=== PATIENT | female | born 1935 | race Two or more races ===

== ENCOUNTER → 2017-11-01 | Outpatient (CLI) | payer OTHER ==
[~2017-11-01] VITALS: Ht 152.4 cm; Wt 81.6 kg
[~2017-11-01] MED LIST: CENTRUM SILVER1 TAB PO; CRESTOR10 MG PO; DIOVAN160 M1 PO; LOPRESSOR25 MG PO; MILK THISTLE200 MG PO; NEURIN; PLAVIX75 MG PO; SKELAXIN; TIZANIDINE HCL2 MG PO; VITAMIN B-1000 MCG/2 IJ; ZANTAC300 MG PO; [UNRECOGNIZED DRUG - OTHER]
== END | disposition home or self-care (01) ==
LOC: PPHC 11:38
DX: R05 Cough (principal); J06.9 Acute upper respiratory infection, unspecified

== ENCOUNTER 2018-01-13 10:26 | Outpatient (CLI) | payer OTHER ==
[~2018-01-13 10:26] MED LIST changes: +DERMOTIC20 ML OTIC; +ZYRTEC10 MG PO
== END 2018-01-14 10:26 | disposition home or self-care (01) ==
LOC: LAB 10:26
DX: I10 Essential (primary) hypertension (principal); E78.4 Other hyperlipidemia; E03.4 Atrophy of thyroid (acquired); C18.2 Malignant neoplasm of ascending colon; E72.12 Methylenetetrahydrofolate reductase deficiency; D68.61 Antiphospholipid syndrome; E72.11 Homocystinuria; D68.59 Other primary thrombophilia; M15.0 Primary generalized (osteo)arthritis; I80.293 Phlebitis and thrombophlebitis of other deep vessels of lower extremity, bilateral; N39.0 Urinary tract infection, site not specified; Z86.010 Personal history of colon polyps; Z85.09 Personal history of malignant neoplasm of other digestive organs; Z85.038 Personal history of other malignant neoplasm of large intestine; Z86.718 Personal history of other venous thrombosis and embolism; Z86.72 Personal history of thrombophlebitis; D50.8 Other iron deficiency anemias; D51.8 Other vitamin B12 deficiency anemias; E55.9 Vitamin D deficiency, unspecified; K90.89 Other intestinal malabsorption; E03.8 Other specified hypothyroidism; R97.0 Elevated carcinoembryonic antigen [CEA]; E78.2 Mixed hyperlipidemia; R73.09 Other abnormal glucose

== ENCOUNTER 2018-01-13 11:26 | Outpatient (CLI) | payer OTHER | END 2018-01-13 15:40 | disposition home or self-care (01) | LOC: MAMO-SONO 11:26 | DX: Z12.31 Encounter for screening mammogram for malignant neoplasm of breast (principal); Z87.898 Personal history of other specified conditions; N64.89 Other specified disorders of breast ==

== ENCOUNTER 2018-01-13 11:39 | Outpatient (CLI) | payer OTHER | END 2018-01-13 15:29 | disposition home or self-care (01) | LOC: RAD 11:39 | DX: R05 Cough (principal); J45.41 Moderate persistent asthma with (acute) exacerbation ==

== ENCOUNTER → 2018-05-05 10:19 | Outpatient (CLI) | payer OTHER | END | disposition home or self-care (01) | LOC: LAB 10:19 | DX: I10 Essential (primary) hypertension (principal); E78.4 Other hyperlipidemia; E03.4 Atrophy of thyroid (acquired) ==

== ENCOUNTER → 2018-05-10 09:17 | Outpatient (CLI) | payer OTHER | END | disposition home or self-care (01) | LOC: LAB 09:17 | DX: C18.2 Malignant neoplasm of ascending colon (principal); D68.61 Antiphospholipid syndrome; M15.0 Primary generalized (osteo)arthritis; I80.293 Phlebitis and thrombophlebitis of other deep vessels of lower extremity, bilateral; N39.0 Urinary tract infection, site not specified; Z86.010 Personal history of colon polyps; Z85.09 Personal history of malignant neoplasm of other digestive organs; Z85.038 Personal history of other malignant neoplasm of large intestine; Z86.718 Personal history of other venous thrombosis and embolism; Z86.72 Personal history of thrombophlebitis; I10 Essential (primary) hypertension; E03.8 Other specified hypothyroidism; D50.1 Sideropenic dysphagia; D50.8 Other iron deficiency anemias; E78.2 Mixed hyperlipidemia; E04.1 Nontoxic single thyroid nodule; E11.9 Type 2 diabetes mellitus without complications ==

== ENCOUNTER 2018-05-14 10:03 | Outpatient (CLI) | payer OTHER | END 2018-05-14 10:15 | disposition home or self-care (01) | LOC: MRI 10:03 | DX: M72.2 Plantar fascial fibromatosis (principal); M17.11 Unilateral primary osteoarthritis, right knee | CPT/HCPCS: 73718; 73721 ==

== ENCOUNTER 2018-06-04 07:00 | Outpatient (CLI) | payer OTHER | END 2018-06-04 10:00 | disposition home or self-care (01) | LOC: TOM 07:00 | DX: C18.2 Malignant neoplasm of ascending colon (principal); E72.12 Methylenetetrahydrofolate reductase deficiency; D68.61 Antiphospholipid syndrome; E72.11 Homocystinuria; D68.59 Other primary thrombophilia; M15.0 Primary generalized (osteo)arthritis; I80.293 Phlebitis and thrombophlebitis of other deep vessels of lower extremity, bilateral; N39.0 Urinary tract infection, site not specified; Z86.010 Personal history of colon polyps; Z85.09 Personal history of malignant neoplasm of other digestive organs; Z86.718 Personal history of other venous thrombosis and embolism; Z86.72 Personal history of thrombophlebitis; I10 Essential (primary) hypertension | CPT/HCPCS: 71260; 74177; Q9965 ==

== ENCOUNTER → 2018-06-13 | Outpatient (CLI) | payer OTHER | END | disposition home or self-care (01) | LOC: MRI 05-14 10:15 → RAD 11:51 | DX: M25.512 Pain in left shoulder (principal); M19.012 Primary osteoarthritis, left shoulder ==

== ENCOUNTER 2018-09-20 09:09 | Outpatient (CLI) | payer OTHER ==
[2018-09-29] MEDS ORDERED: LIDOCAINE5 GM TOP (10:56)
== END 2018-09-20 09:14 | disposition home or self-care (01) ==
LOC: LAB 09:09
DX: I10 Essential (primary) hypertension (principal); E03.4 Atrophy of thyroid (acquired); E78.49 Other hyperlipidemia; M19.011 Primary osteoarthritis, right shoulder

== ENCOUNTER 2018-10-14 14:25 | Outpatient (CLI) | payer OTHER ==
[~2018-10-14 14:25] MED LIST changes: +LIDOCAINE5 GM TOP
== END 2018-10-14 14:33 | disposition home or self-care (01) ==
LOC: SONOGRAMA 14:25
DX: M75.102 Unspecified rotator cuff tear or rupture of left shoulder, not specified as traumatic (principal); M75.101 Unspecified rotator cuff tear or rupture of right shoulder, not specified as traumatic; N28.1 Cyst of kidney, acquired

== ENCOUNTER 2018-11-22 09:34 | Outpatient (CLI) | payer OTHER | END 2018-11-22 09:39 | disposition home or self-care (01) | LOC: LAB 09:34 | DX: I10 Essential (primary) hypertension (principal); E71.40 Disorder of carnitine metabolism, unspecified; E03.4 Atrophy of thyroid (acquired) ==

== ENCOUNTER → 2018-11-28 | Outpatient (CLI) | payer OTHER | END | disposition home or self-care (01) | LOC: NUCLEAR 13:00 | DX: M81.0 Age-related osteoporosis without current pathological fracture (principal) ==

== ENCOUNTER 2018-12-02 12:04 | Outpatient (CLI) | payer OTHER | END 2018-12-02 12:09 | disposition home or self-care (01) | LOC: LAB 12:04 | DX: Z12.11 Encounter for screening for malignant neoplasm of colon (principal) ==

== ENCOUNTER 2018-12-03 11:36 | Outpatient (CLI) | payer OTHER | END 2018-12-03 12:19 | disposition home or self-care (01) | LOC: RAD 11:36 | DX: M46.1 Sacroiliitis, not elsewhere classified (principal); M25.552 Pain in left hip; M25.551 Pain in right hip ==

== ENCOUNTER 2018-12-03 14:36 | Outpatient (CLI) | payer OTHER | END 2018-12-03 15:01 | disposition home or self-care (01) | LOC: LAB 14:36 | DX: M46.1 Sacroiliitis, not elsewhere classified (principal); M25.551 Pain in right hip; M25.552 Pain in left hip; M19.90 Unspecified osteoarthritis, unspecified site; Z74.09 Other reduced mobility; M75.80 Other shoulder lesions, unspecified shoulder ==

== ENCOUNTER 2018-12-22 10:25 | Outpatient (CLI) | payer OTHER | END 2018-12-22 10:30 | disposition home or self-care (01) | LOC: LAB 10:25 | DX: E78.49 Other hyperlipidemia (principal); M35.3 Polymyalgia rheumatica ==

== ENCOUNTER → 2019-01-14 | Outpatient (CLI) | payer OTHER | END | disposition home or self-care (01) | LOC: RAD 11:42 | DX: D36.13 Benign neoplasm of peripheral nerves and autonomic nervous system of lower limb, including hip (principal); G57.62 Lesion of plantar nerve, left lower limb ==

== ENCOUNTER 2019-01-31 09:37 | Outpatient (CLI) | payer OTHER | END 2019-01-31 09:46 | disposition home or self-care (01) | LOC: LAB 09:37 | DX: E78.49 Other hyperlipidemia (principal); M35.3 Polymyalgia rheumatica; E11.9 Type 2 diabetes mellitus without complications ==

== ENCOUNTER → 2019-02-28 09:41 | Outpatient (CLI) | payer OTHER | END | disposition home or self-care (01) | LOC: LAB 09:41 | DX: N18.2 Chronic kidney disease, stage 2 (mild) (principal); I10 Essential (primary) hypertension; N39.0 Urinary tract infection, site not specified ==

== ENCOUNTER 2019-03-03 13:13 | Outpatient (CLI) | payer OTHER | END 2019-03-03 13:15 | disposition home or self-care (01) | LOC: SONOGRAMA 13:13 | DX: N31.8 Other neuromuscular dysfunction of bladder (principal); N18.2 Chronic kidney disease, stage 2 (mild) ==

== ENCOUNTER 2019-03-10 09:44 | Outpatient (CLI) | payer OTHER | END 2019-03-10 09:51 | disposition home or self-care (01) | LOC: LAB 09:44 | DX: C18.2 Malignant neoplasm of ascending colon (principal); E72.12 Methylenetetrahydrofolate reductase deficiency; E72.11 Homocystinuria; D68.59 Other primary thrombophilia; M15.0 Primary generalized (osteo)arthritis; I80.293 Phlebitis and thrombophlebitis of other deep vessels of lower extremity, bilateral; N39.0 Urinary tract infection, site not specified; Z86.010 Personal history of colon polyps; Z85.09 Personal history of malignant neoplasm of other digestive organs; Z85.038 Personal history of other malignant neoplasm of large intestine; Z86.718 Personal history of other venous thrombosis and embolism; Z86.72 Personal history of thrombophlebitis; I10 Essential (primary) hypertension; D50.8 Other iron deficiency anemias; D51.8 Other vitamin B12 deficiency anemias; R97.0 Elevated carcinoembryonic antigen [CEA]; K90.89 Other intestinal malabsorption ==

== ENCOUNTER → 2019-03-11 | Outpatient (CLI) | payer OTHER | END | disposition home or self-care (01) | LOC: MAMO-SONO 11:15 → RAD 11:33 | DX: M35.3 Polymyalgia rheumatica (principal); M15.8 Other polyosteoarthritis ==

== ENCOUNTER 2019-05-05 09:55 | Outpatient (CLI) | payer OTHER | END 2019-05-05 09:59 | disposition home or self-care (01) | LOC: LAB 09:55 | DX: M35.3 Polymyalgia rheumatica (principal) ==

== ENCOUNTER 2019-06-25 14:33 | Emergency (ER) | payer OTHER ==
[~2019-06-25] VITALS: Ht 162.6 cm; Wt 79.4 kg
[2019-06-25] MEDS ORDERED: AVAPRO150 MG PO (15:00)
== END 2019-06-25 18:42 | disposition home or self-care (01) ==
LOC: ER 14:33
DX: G45.8 Other transient cerebral ischemic attacks and related syndromes (principal)

== ENCOUNTER 2019-07-11 09:31 | Outpatient (CLI) | payer OTHER ==
[~2019-07-11 09:31] MED LIST changes: +AVAPRO150 MG PO
== END 2019-07-11 09:40 | disposition home or self-care (01) ==
LOC: LAB 09:31
DX: M53.82 Other specified dorsopathies, cervical region (principal); E11.9 Type 2 diabetes mellitus without complications; E03.8 Other specified hypothyroidism; M35.3 Polymyalgia rheumatica

== ENCOUNTER 2019-07-27 09:08 | Outpatient (CLI) | payer OTHER | END 2019-07-27 09:35 | disposition home or self-care (01) | LOC: LAB 09:08 | DX: E04.1 Nontoxic single thyroid nodule (principal) ==

== ENCOUNTER 2019-07-27 14:05 | Outpatient (CLI) | payer OTHER | END 2019-07-27 14:09 | disposition home or self-care (01) | LOC: SONOGRAMA 14:05 → MAMO-SONO 14:15 | DX: E04.1 Nontoxic single thyroid nodule (principal) ==

== ENCOUNTER 2019-08-10 09:36 | Outpatient (CLI) | payer OTHER | END 2019-08-10 09:43 | disposition home or self-care (01) | LOC: SONOGRAMA 09:36 | DX: E04.2 Nontoxic multinodular goiter (principal) ==

== ENCOUNTER → 2019-09-09 18:08 | Outpatient (CLI) | payer OTHER | END | disposition home or self-care (01) | LOC: LAB 18:08 | DX: N39.0 Urinary tract infection, site not specified (principal) ==

== ENCOUNTER 2019-11-16 09:29 | Outpatient (CLI) | payer OTHER | END 2019-11-16 09:36 | disposition home or self-care (01) | LOC: LAB 09:29 | DX: D64.89 Other specified anemias (principal); E11.9 Type 2 diabetes mellitus without complications; E03.8 Other specified hypothyroidism; N39.0 Urinary tract infection, site not specified; Z12.11 Encounter for screening for malignant neoplasm of colon; M79.18 Myalgia, other site; D50.8 Other iron deficiency anemias; I10 Essential (primary) hypertension; C18.2 Malignant neoplasm of ascending colon; E72.12 Methylenetetrahydrofolate reductase deficiency; E72.11 Homocystinuria; D68.59 Other primary thrombophilia; M15.0 Primary generalized (osteo)arthritis; I80.293 Phlebitis and thrombophlebitis of other deep vessels of lower extremity, bilateral; Z86.010 Personal history of colon polyps; Z85.09 Personal history of malignant neoplasm of other digestive organs; Z85.038 Personal history of other malignant neoplasm of large intestine; Z86.718 Personal history of other venous thrombosis and embolism; Z86.72 Personal history of thrombophlebitis; D51.8 Other vitamin B12 deficiency anemias; R97.0 Elevated carcinoembryonic antigen [CEA]; E55.9 Vitamin D deficiency, unspecified; E78.49 Other hyperlipidemia ==

== ENCOUNTER → 2019-11-19 | Outpatient (CLI) | payer OTHER | END | disposition home or self-care (01) | LOC: RAD 09:08 → TOM 09:15 | DX: K57.30 Diverticulosis of large intestine without perforation or abscess without bleeding (principal); Z85.038 Personal history of other malignant neoplasm of large intestine; K43.0 Incisional hernia with obstruction, without gangrene; M54.12 Radiculopathy, cervical region | CPT/HCPCS: 72141 ==

== ENCOUNTER 2019-12-25 09:30 | Outpatient (CLI) | payer OTHER | END 2019-12-25 09:38 | disposition home or self-care (01) | LOC: LAB 09:30 | DX: H53.8 Other visual disturbances (principal) ==

== ENCOUNTER 2020-06-17 13:40 | Outpatient (CLI) | payer OTHER ==
[2020-06-24] MEDS ORDERED: TRAMADOL HCL50 MG PO (10:54)
== END 2020-06-17 14:02 | disposition home or self-care (01) ==
LOC: RAD 13:40 → MAMO-SONO 14:15
PROVIDERS: ATTEND Internal Medicine
DX: N60.11 Diffuse cystic mastopathy of right breast (principal); N60.12 Diffuse cystic mastopathy of left breast; M25.551 Pain in right hip; M25.552 Pain in left hip; Z12.31 Encounter for screening mammogram for malignant neoplasm of breast

== ENCOUNTER 2020-06-27 14:08 | Outpatient (CLI) | payer OTHER ==
[~2020-06-27 14:08] MED LIST changes: +TRAMADOL HCL50 MG PO
== END 2020-06-27 14:19 | disposition home or self-care (01) ==
LOC: MRI 14:08
PROVIDERS: ATTEND Physical Medicine & Rehabilitation
DX: M25.552 Pain in left hip (principal)
CPT/HCPCS: 73718; 73721

== ENCOUNTER 2020-07-20 10:20 | Outpatient (CLI) | payer OTHER | END 2020-07-20 10:34 | disposition home or self-care (01) | LOC: LAB 10:20 | PROVIDERS: ATTEND Internal Medicine | DX: D64.89 Other specified anemias (principal); E78.2 Mixed hyperlipidemia; E55.9 Vitamin D deficiency, unspecified; N39.0 Urinary tract infection, site not specified; Z12.11 Encounter for screening for malignant neoplasm of colon ==

== ENCOUNTER 2020-08-12 16:09 | Outpatient (CLI) | payer OTHER | END 2020-08-12 16:13 | disposition home or self-care (01) | LOC: LAB 16:09 | DX: N39.0 Urinary tract infection, site not specified (principal) ==

== ENCOUNTER → 2020-12-27 10:43 | Outpatient (CLI) | payer OTHER | END | disposition home or self-care (01) | LOC: LAB 10:43 | PROVIDERS: ATTEND Radiology Diagnostic Radiology | DX: N20.0 Calculus of kidney (principal) ==

== ENCOUNTER 2021-01-02 09:12 | Outpatient (CLI) | payer OTHER | END 2021-01-02 09:36 | disposition home or self-care (01) | LOC: TOM 09:12 | PROVIDERS: ATTEND Internal Medicine Hematology & Oncology | DX: Q61.02 Congenital multiple renal cysts (principal); E04.8 Other specified nontoxic goiter; C18.2 Malignant neoplasm of ascending colon; E72.12 Methylenetetrahydrofolate reductase deficiency; E72.11 Homocystinuria; D68.59 Other primary thrombophilia; M15.0 Primary generalized (osteo)arthritis; I80.293 Phlebitis and thrombophlebitis of other deep vessels of lower extremity, bilateral; N39.0 Urinary tract infection, site not specified; Z86.010 Personal history of colon polyps; Z85.09 Personal history of malignant neoplasm of other digestive organs; Z85.038 Personal history of other malignant neoplasm of large intestine; Z86.718 Personal history of other venous thrombosis and embolism; Z86.72 Personal history of thrombophlebitis; I10 Essential (primary) hypertension | CPT/HCPCS: 71270; Q9965 ==

== ENCOUNTER 2021-04-28 11:48 | Outpatient (CLI) | payer OTHER | END 2021-04-28 12:03 | disposition home or self-care (01) | LOC: MRI 11:48 | PROVIDERS: ATTEND Psychiatry & Neurology Clinical Neurophysiology | DX: M54.16 Radiculopathy, lumbar region (principal) | CPT/HCPCS: 72148 ==

== ENCOUNTER 2021-09-12 10:39 | Outpatient (CLI) | payer OTHER | END 2021-09-12 10:46 | disposition home or self-care (01) | LOC: RAD 10:39 | PROVIDERS: ATTEND Internal Medicine | DX: M13.812 Other specified arthritis, left shoulder (principal); M25.512 Pain in left shoulder; N60.11 Diffuse cystic mastopathy of right breast; N60.12 Diffuse cystic mastopathy of left breast; Z12.31 Encounter for screening mammogram for malignant neoplasm of breast; M25.511 Pain in right shoulder ==

== ENCOUNTER 2021-11-27 11:16 | Outpatient (CLI) | payer OTHER | END 2021-11-27 11:24 | disposition home or self-care (01) | LOC: LAB 11:16 | PROVIDERS: ATTEND Internal Medicine Hematology & Oncology | DX: D64.89 Other specified anemias (principal); B96.29 Other Escherichia coli [E. coli] as the cause of diseases classified elsewhere; E78.2 Mixed hyperlipidemia; I10 Essential (primary) hypertension; E03.8 Other specified hypothyroidism; N39.0 Urinary tract infection, site not specified; E55.9 Vitamin D deficiency, unspecified; R73.09 Other abnormal glucose; Z12.11 Encounter for screening for malignant neoplasm of colon; D50.8 Other iron deficiency anemias; R79.89 Other specified abnormal findings of blood chemistry; R74.02 Elevation of levels of lactic acid dehydrogenase [LDH]; K76.89 Other specified diseases of liver; D68.61 Antiphospholipid syndrome; R97.0 Elevated carcinoembryonic antigen [CEA]; R97.8 Other abnormal tumor markers; R19.5 Other fecal abnormalities; C18.2 Malignant neoplasm of ascending colon; I26.99 Other pulmonary embolism without acute cor pulmonale; M15.0 Primary generalized (osteo)arthritis; I80.293 Phlebitis and thrombophlebitis of other deep vessels of lower extremity, bilateral; Z86.010 Personal history of colon polyps; Z85.09 Personal history of malignant neoplasm of other digestive organs; Z85.038 Personal history of other malignant neoplasm of large intestine; Z86.718 Personal history of other venous thrombosis and embolism; Z86.72 Personal history of thrombophlebitis ==

== ENCOUNTER 2021-11-30 16:00 | Outpatient (CLI) | payer OTHER | END 2021-11-30 16:07 | disposition home or self-care (01) | LOC: LAB 16:00 | PROVIDERS: ATTEND Internal Medicine Hematology & Oncology | DX: D64.89 Other specified anemias (principal); E78.2 Mixed hyperlipidemia; I10 Essential (primary) hypertension; E03.8 Other specified hypothyroidism; N39.0 Urinary tract infection, site not specified; E55.9 Vitamin D deficiency, unspecified; R73.09 Other abnormal glucose; Z12.11 Encounter for screening for malignant neoplasm of colon; D50.8 Other iron deficiency anemias; R79.89 Other specified abnormal findings of blood chemistry; R74.02 Elevation of levels of lactic acid dehydrogenase [LDH]; K76.89 Other specified diseases of liver; D68.61 Antiphospholipid syndrome; R97.0 Elevated carcinoembryonic antigen [CEA]; R97.8 Other abnormal tumor markers; C10.2 Malignant neoplasm of lateral wall of oropharynx; I26.99 Other pulmonary embolism without acute cor pulmonale; M15.0 Primary generalized (osteo)arthritis; I80.293 Phlebitis and thrombophlebitis of other deep vessels of lower extremity, bilateral; Z86.010 Personal history of colon polyps; Z85.09 Personal history of malignant neoplasm of other digestive organs; Z85.038 Personal history of other malignant neoplasm of large intestine; Z86.718 Personal history of other venous thrombosis and embolism; Z86.72 Personal history of thrombophlebitis ==

== ENCOUNTER 2022-01-06 13:38 | Outpatient (CLI) | payer OTHER | END 2022-01-06 13:44 | disposition home or self-care (01) | LOC: LAB 13:38 | PROVIDERS: ATTEND Internal Medicine | DX: N39.0 Urinary tract infection, site not specified (principal) ==

== ENCOUNTER 2022-02-28 23:33 | Emergency (ER) | payer OTHER ==
[~2022-02-28] VITALS: Ht 160 cm; Wt 85.7 kg
[2022-03-01] MEDS ORDERED: ULTRAM50 MG PO (03:24)
[2022-03-12] MEDS ORDERED: MILLIPRED5 MG PO (15:13)
[2022-03-12] MEDS ORDERED: XARELTO20 M1 PO (15:13)
== END 2022-03-01 04:03 ==
LOC: ER 23:33
DX: M25.512 Pain in left shoulder (principal)

== ENCOUNTER 2022-03-03 13:03 | Emergency (ER) | payer OTHER ==
[~2022-03-03] VITALS: Ht 160 cm; Wt 85.7 kg
[~2022-03-03 13:03] MED LIST changes: +ULTRAM50 MG PO
[2022-03-12] MEDS ORDERED: XARELTO20 M1 PO (15:13)
[2022-03-12] MEDS ORDERED: MILLIPRED5 MG PO (15:13)
== END 2022-03-03 19:19 | disposition home or self-care (01) ==
LOC: ER 13:03
DX: S42.332A Displaced oblique fracture of shaft of humerus, left arm, initial encounter for closed fracture (principal); S00.83XA Contusion of other part of head, initial encounter; W01.0XXA Fall on same level from slipping, tripping and stumbling without subsequent striking against object, initial encounter; Y92.018 Other place in single-family (private) house as the place of occurrence of the external cause; Z88.6 Allergy status to analgesic agent; Z79.02 Long term (current) use of antithrombotics/antiplatelets; I10 Essential (primary) hypertension

== ENCOUNTER 2022-03-06 12:54 | Outpatient (CLI) | payer OTHER ==
[~2022-03-06] VITALS: Ht 160 cm; Wt 83.0 kg
[2022-03-12] MEDS ORDERED: XARELTO20 M1 PO (15:13)
[2022-03-12] MEDS ORDERED: MILLIPRED5 MG PO (15:13)
== END 2022-03-06 16:27 | disposition home or self-care (01) ==
LOC: LAB 12:54
PROVIDERS: ATTEND Orthopaedic Surgery
DX: D64.9 Anemia, unspecified (principal); E88.9 Metabolic disorder, unspecified; D68.8 Other specified coagulation defects; N39.0 Urinary tract infection, site not specified; A49.02 Methicillin resistant Staphylococcus aureus infection, unspecified site; E11.9 Type 2 diabetes mellitus without complications; I10 Essential (primary) hypertension; I49.9 Cardiac arrhythmia, unspecified; Z76.89 Persons encountering health services in other specified circumstances

== ENCOUNTER 2022-03-08 14:23 | Outpatient (CLI) | payer OTHER ==
[2022-03-12] MEDS ORDERED: MILLIPRED5 MG PO (15:13)
[2022-03-12] MEDS ORDERED: XARELTO20 M1 PO (15:13)
== END 2022-03-08 14:54 | disposition home or self-care (01) ==
LOC: RAD 14:23
PROVIDERS: ATTEND Orthopaedic Surgery
DX: M54.6 Pain in thoracic spine (principal); M54.50 Low back pain, unspecified

== ENCOUNTER 2022-03-13 13:27 | Day surgery (SDC) | payer OTHER ==
[~2022-03-13 13:27] MED LIST changes: +MILLIPRED5 MG PO; +XARELTO20 M1 PO
[2022-03-14] MEDS ORDERED: IRBESARTAN-HCT1 EACH (08:47)
[2022-03-14] MEDS ORDERED: METOPROLOL SUCC25 MG (08:47)
[2022-03-14] MEDS ORDERED: PANTOPRAZOLE SO40 MG (08:47)
[2022-03-14] MEDS ORDERED: ATORVASTATIN CA10 MG (08:48)
[2022-03-14] MEDS ORDERED: RAYOS5 MG (08:48)
== END 2022-03-14 14:25 | disposition home or self-care (01) ==
LOC: CIR.AMB 13:27 → O/R 20:35 → CIR.AMB 20:35 → O/R 03-14 10:30
PROVIDERS: ATTEND Orthopaedic Surgery
DX: S42.392A Other fracture of shaft of left humerus, initial encounter for closed fracture (principal); Z20.822 Contact with and (suspected) exposure to COVID-19; Z88.6 Allergy status to analgesic agent; I10 Essential (primary) hypertension; Z86.711 Personal history of pulmonary embolism; Z79.01 Long term (current) use of anticoagulants

== ENCOUNTER 2022-04-12 10:31 | Outpatient (CLI) | payer OTHER ==
[~2022-04-12 10:31] MED LIST changes: +ATORVASTATIN CA10 MG; +IRBESARTAN-HCT1 EACH; +METOPROLOL SUCC25 MG; +PANTOPRAZOLE SO40 MG; +RAYOS5 MG
== END 2022-04-12 10:37 | disposition home or self-care (01) ==
LOC: RAD 10:31
PROVIDERS: ATTEND Orthopaedic Surgery
DX: S42.332D Displaced oblique fracture of shaft of humerus, left arm, subsequent encounter for fracture with routine healing (principal)

== ENCOUNTER 2022-08-09 11:29 | Outpatient (CLI) | payer OTHER | END 2022-08-09 11:30 | disposition home or self-care (01) | LOC: NUCLEAR 11:29 | PROVIDERS: ATTEND Orthopaedic Surgery | DX: M81.0 Age-related osteoporosis without current pathological fracture (principal); Z88.6 Allergy status to analgesic agent ==

== ENCOUNTER 2022-08-28 12:15 | Outpatient (CLI) | payer OTHER | END 2022-08-28 12:19 | disposition home or self-care (01) | LOC: SONOGRAMA 12:15 | PROVIDERS: ATTEND Internal Medicine | DX: J44.1 Chronic obstructive pulmonary disease with (acute) exacerbation (principal); N18.2 Chronic kidney disease, stage 2 (mild); I87.2 Venous insufficiency (chronic) (peripheral) ==

== ENCOUNTER 2022-12-21 15:22 | Outpatient (CLI) | payer OTHER | END 2022-12-21 15:31 | disposition home or self-care (01) | LOC: RAD 15:22 | PROVIDERS: ATTEND Internal Medicine | DX: J01.90 Acute sinusitis, unspecified (principal) ==

== ENCOUNTER 2023-01-16 14:58 | Outpatient (CLI) | payer OTHER | END 2023-01-16 15:00 | disposition home or self-care (01) | LOC: LAB 14:58 | PROVIDERS: ATTEND Physical Medicine & Rehabilitation | DX: M10.9 Gout, unspecified (principal) ==

== ENCOUNTER 2023-02-16 10:30 | Outpatient (CLI) | payer OTHER | END 2023-02-16 10:34 | disposition home or self-care (01) | LOC: LAB 10:30 | PROVIDERS: ATTEND Specialist | DX: I10 Essential (primary) hypertension (principal); E78.5 Hyperlipidemia, unspecified; E03.5 Myxedema coma ==

== ENCOUNTER 2023-03-04 14:42 | Outpatient (CLI) | payer OTHER | END 2023-03-04 14:47 | disposition home or self-care (01) | LOC: LAB 14:42 | PROVIDERS: ATTEND Orthopaedic Surgery | DX: M85.9 Disorder of bone density and structure, unspecified (principal); E56.1 Deficiency of vitamin K; E83.42 Hypomagnesemia; R79.89 Other specified abnormal findings of blood chemistry ==

== ENCOUNTER 2023-03-22 11:32 | Outpatient (CLI) | payer OTHER | END 2023-03-22 11:36 | disposition home or self-care (01) | LOC: MRI 11:32 | PROVIDERS: ATTEND Orthopaedic Surgery | DX: M25.511 Pain in right shoulder (principal) | CPT/HCPCS: 73223; Q9965; 73722 ==

== ENCOUNTER → 2023-04-02 16:38 | Outpatient (CLI) | payer OTHER | END | disposition home or self-care (01) | LOC: LAB 16:38 | PROVIDERS: ATTEND Physical Medicine & Rehabilitation | DX: M35.3 Polymyalgia rheumatica (principal) ==

== ENCOUNTER 2023-04-10 14:16 | Outpatient (CLI) | payer OTHER | END 2023-04-10 14:22 | disposition home or self-care (01) | LOC: LAB 14:16 | PROVIDERS: ATTEND Colon & Rectal Surgery | DX: Z03.818 Encounter for observation for suspected exposure to other biological agents ruled out (principal); Z20.822 Contact with and (suspected) exposure to COVID-19; C18.2 Malignant neoplasm of ascending colon; Z85.038 Personal history of other malignant neoplasm of large intestine ==

== ENCOUNTER 2023-04-18 13:35 | Outpatient (CLI) | payer OTHER | END 2023-04-18 13:40 | disposition home or self-care (01) | LOC: RAD 13:35 | PROVIDERS: ATTEND Physical Medicine & Rehabilitation | DX: M25.562 Pain in left knee (principal) ==

== ENCOUNTER 2024-02-05 11:14 | Outpatient (CLI) | payer OTHER | END 2024-02-05 11:22 | disposition home or self-care (01) | LOC: MAMO-SONO 11:14 | PROVIDERS: ATTEND Internal Medicine Hematology & Oncology | DX: C18.2 Malignant neoplasm of ascending colon (principal); E72.12 Methylenetetrahydrofolate reductase deficiency; E72.11 Homocystinuria; D68.59 Other primary thrombophilia; I26.99 Other pulmonary embolism without acute cor pulmonale; M15.0 Primary generalized (osteo)arthritis; I80.293 Phlebitis and thrombophlebitis of other deep vessels of lower extremity, bilateral; N39.0 Urinary tract infection, site not specified; Z86.010 Personal history of colon polyps; Z85.09 Personal history of malignant neoplasm of other digestive organs; Z85.038 Personal history of other malignant neoplasm of large intestine; Z86.718 Personal history of other venous thrombosis and embolism; Z86.72 Personal history of thrombophlebitis; I10 Essential (primary) hypertension; D51.3 Other dietary vitamin B12 deficiency anemia; D52.8 Other folate deficiency anemias; Z12.31 Encounter for screening mammogram for malignant neoplasm of breast ==

== ENCOUNTER → 2024-08-08 09:55 | Outpatient (CLI) | payer OTHER ==
[2024-08-08 11:34] LABS: HEMATOCRIT 42.1 % (36.0-45.00); HEMOGLOBIN 14.7 g/dL (12.0-15.00); MEAN CELL VOLUME 100.6 fL (80.00-100.00); MEAN CORPUSCULAR HEMOGLOBIN 35.1 pg (27.00-32.0); MEAN CORPUSCULAR HGB CONC 34.9 g/dl (32.0-36.0); PLATELET COUNT 376 K/uL (150-450); RED BLOOD COUNT 4.19 M/uL (4.00-6.00); RED CELL DISTRIBUTION WIDTH 13.9 % (11.5-14.5)
== END | disposition home or self-care (01) ==
LOC: LAB 09:55
PROVIDERS: ATTEND Internal Medicine Gastroenterology
DX: K57.30 Diverticulosis of large intestine without perforation or abscess without bleeding (principal); Z85.038 Personal history of other malignant neoplasm of large intestine; K43.0 Incisional hernia with obstruction, without gangrene; R19.5 Other fecal abnormalities

== ENCOUNTER → 2024-09-02 08:31 | Outpatient (CLI) | payer OTHER ==
[2024-09-02 09:18] LABS: HEMOGLOBIN 13.7 g/dL (12.0-15.00); MEAN CELL VOLUME 103.5 fL (80.00-100.00); MEAN CORPUSCULAR HEMOGLOBIN 35.4 pg (27.00-32.0); MEAN CORPUSCULAR HGB CONC 34.2 g/dl (32.0-36.0); PLATELET COUNT 359 K/uL (150-450); RED BLOOD COUNT 3.87 M/uL (4.00-6.00)
[2024-09-02 11:16] LABS: MYCOPLASMA PNEUMONIAE IGM NON REACTIVE (NO REACTIVE)
== END | disposition home or self-care (01) ==
LOC: LAB 08:31
PROVIDERS: ATTEND Internal Medicine Pulmonary Disease
DX: J11.1 Influenza due to unidentified influenza virus with other respiratory manifestations (principal); J45.31 Mild persistent asthma with (acute) exacerbation; R50.9 Fever, unspecified; Z20.822 Contact with and (suspected) exposure to COVID-19; R05.9 Cough, unspecified; R06.02 Shortness of breath

== ENCOUNTER → 2024-11-05 10:50 | Outpatient (CLI) | payer OTHER ==
[2024-11-05 11:29] LABS: HEMATOCRIT 41.7 % (36.0-45.00); HEMOGLOBIN 14.4 g/dL (12.0-15.00); MEAN CELL VOLUME 100.2 fL (80.00-100.00); MEAN CORPUSCULAR HEMOGLOBIN 34.7 pg (27.00-32.0); MEAN CORPUSCULAR HGB CONC 34.6 g/dl (32.0-36.0); PLATELET COUNT 335 K/uL (150-450); RED BLOOD COUNT 4.16 M/uL (4.00-6.00); RED CELL DISTRIBUTION WIDTH 13.8 % (11.5-14.5)
[2024-11-05 11:30] LABS: URINE APPEARANCE Cloudy; URINE BILIRRUBIN Negative (NEGATIVE); URINE BLOOD Small; URINE COLOR Yellow; URINE GLUCOSE Negative (NEGATIVE); URINE KETONE Negative (NEGATIVE); URINE LEUKOCYTE Moderate; URINE NITRATE Negative; URINE PROTEIN Trace (NEGATIVE); URINE UROBILINOGEN 0.2 E.U./dl
[2024-11-05 11:32] LABS: URINE BACTERIA 4227.4 uL (0.0-1933); URINE EPITHELIAL CELLS 52.2 uL (0.0-38.8); URINE RBC 10.3 uL (0.0-20.8); URINE WBC 262.9 uL (0.0-23.2)
[2024-11-05 11:45] LABS: URINE CAST 0.44 uL (0.0-1.40)
[2024-11-05 12:15] LABS: ALBUMIN 3.6 gm/dL (3.4-5.0); BILIRUBIN TOTAL 1.43 mg/dL (0.3-1.2); CALCIUM 9.4 mg/dL (8.5-10.1); CHOL HDL RATIO 2.6 (0-5.0); CREATININE SERUM 0.85 mg/dL (0.55-1.02); GFR 63.12; GLOBULINA 3.5 G/DL (2.4-3.5); POTASSIUM 3.58 mEq/L (3.5-5.1); TOTAL PROTEIN 7.1 gm/dL (6.4-8.2); TSH 0.666 uIU/mL (0.358-3.74)
== END | disposition home or self-care (01) ==
LOC: LAB 10:50
PROVIDERS: ATTEND Internal Medicine
DX: D64.9 Anemia, unspecified (principal); E11.9 Type 2 diabetes mellitus without complications; E78.00 Pure hypercholesterolemia, unspecified; N39.0 Urinary tract infection, site not specified; E03.8 Other specified hypothyroidism; Z12.11 Encounter for screening for malignant neoplasm of colon; E55.9 Vitamin D deficiency, unspecified

== ENCOUNTER → 2024-11-24 07:17 | Outpatient (CLI) | payer OTHER | END | disposition home or self-care (01) | LOC: NUCLEAR 07:17 | PROVIDERS: ATTEND Internal Medicine Hematology & Oncology | DX: C18.2 Malignant neoplasm of ascending colon (principal) | CPT/HCPCS: 78816; A9552 ==

== ENCOUNTER 2024-11-26 10:52 | Outpatient (CLI) | payer OTHER ==
[2024-11-26 11:33] LABS: PH,URINE 5.5 (5.0-8.0); URINE APPEARANCE Cloudy; URINE BILIRRUBIN Negative (NEGATIVE); URINE BLOOD Small; URINE COLOR Yellow; URINE GLUCOSE Negative (NEGATIVE); URINE KETONE Negative (NEGATIVE); URINE LEUKOCYTE Large; URINE NITRATE Positive; URINE PROTEIN Trace (NEGATIVE); URINE UROBILINOGEN 0.2 E.U./dl
[2024-11-26 11:37] LABS: HEMATOCRIT 42.8 % (36.0-45.00); HEMOGLOBIN 14.7 g/dL (12.0-15.00); MEAN CELL VOLUME 100.8 fL (80.00-100.00); MEAN CORPUSCULAR HEMOGLOBIN 34.7 pg (27.00-32.0); MEAN CORPUSCULAR HGB CONC 34.4 g/dl (32.0-36.0); PLATELET COUNT 348 K/uL (150-450); RED BLOOD COUNT 4.25 M/uL (4.00-6.00); RED CELL DISTRIBUTION WIDTH 14.4 % (11.5-14.5)
[2024-11-26 11:37] LABS: URINE EPITHELIAL CELLS 10.6 uL (0.0-38.8); URINE RBC 9.8 uL (0.0-20.8); URINE WBC 3193.2 uL (0.0-23.2)
[2024-11-26 11:56] LABS: URINE BACTERIA > 9821.5 uL (0.0-1933); URINE CAST 0.14 uL (0.0-1.40)
[2024-11-26 12:39] LABS: ALBUMIN 3.6 gm/dL (3.4-5.0); BILIRUBIN TOTAL 1.25 mg/dL (0.3-1.2); CALCIUM 9.5 mg/dL (8.5-10.1); CHOL HDL RATIO 2.7 (0-5.0); CREATININE SERUM 0.86 mg/dL (0.55-1.02); GFR 62.27; GLOBULINA 3.5 G/DL (2.4-3.5); POTASSIUM 3.77 mEq/L (3.5-5.1); TOTAL PROTEIN 7.1 gm/dL (6.4-8.2)
[2024-11-26 13:29] LABS: MANUAL PLATELET COUNT 442
[2024-11-26 13:30] LABS: PLATELET ESTIMATE NORMAL (NORMAL)
[2024-11-26 13:54] LABS: FOLIC ACID > 20.00 ng/ml (4.78-20)
== END 2024-11-26 10:53 | disposition home or self-care (01) ==
LOC: LAB 10:52
PROVIDERS: ATTEND Internal Medicine Hematology & Oncology
DX: D50.8 Other iron deficiency anemias (principal); R79.9 Abnormal finding of blood chemistry, unspecified; I10 Essential (primary) hypertension; R74.02 Elevation of levels of lactic acid dehydrogenase [LDH]; K76.89 Other specified diseases of liver; D51.8 Other vitamin B12 deficiency anemias; D68.59 Other primary thrombophilia; R97.0 Elevated carcinoembryonic antigen [CEA]; R97.8 Other abnormal tumor markers

== ENCOUNTER → 2024-12-23 11:03 | Outpatient (CLI) | payer OTHER | END | disposition home or self-care (01) | LOC: LAB 11:03 | PROVIDERS: ATTEND Physical Medicine & Rehabilitation | DX: M06.9 Rheumatoid arthritis, unspecified (principal); M06.09 Rheumatoid arthritis without rheumatoid factor, multiple sites ==

== ENCOUNTER 2024-12-23 12:18 | Outpatient (CLI) | payer OTHER | END 2024-12-23 12:23 | disposition home or self-care (01) | LOC: SONOGRAMA 12:18 | PROVIDERS: ATTEND Internal Medicine Hematology & Oncology | DX: E04.2 Nontoxic multinodular goiter (principal); C18.2 Malignant neoplasm of ascending colon; N28.1 Cyst of kidney, acquired; E72.11 Homocystinuria; M15.0 Primary generalized (osteo)arthritis; Z86.0100 Personal history of colon polyps, unspecified; Z86.718 Personal history of other venous thrombosis and embolism; D51.3 Other dietary vitamin B12 deficiency anemia; I80.293 Phlebitis and thrombophlebitis of other deep vessels of lower extremity, bilateral; Z85.09 Personal history of malignant neoplasm of other digestive organs; Z86.72 Personal history of thrombophlebitis; D52.8 Other folate deficiency anemias; N28.89 Other specified disorders of kidney and ureter; I26.99 Other pulmonary embolism without acute cor pulmonale; N39.0 Urinary tract infection, site not specified; Z85.038 Personal history of other malignant neoplasm of large intestine; I10 Essential (primary) hypertension; E04.1 Nontoxic single thyroid nodule; D27.0 Benign neoplasm of right ovary ==

== ENCOUNTER → 2024-12-30 11:05 | Outpatient (CLI) | payer OTHER | END | disposition home or self-care (01) | LOC: LAB 11:05 | PROVIDERS: ATTEND Internal Medicine | DX: N39.0 Urinary tract infection, site not specified (principal) ==

== ENCOUNTER 2025-01-27 07:09 | Outpatient (CLI) | payer OTHER | END 2025-01-27 07:10 | disposition home or self-care (01) | LOC: NUCLEAR 07:09 | PROVIDERS: ATTEND Internal Medicine | DX: M15.0 Primary generalized (osteo)arthritis (principal) | CPT/HCPCS: 78306; A9503 ==

== ENCOUNTER → 2025-02-02 08:34 | Outpatient (CLI) | payer OTHER ==
[2025-02-02 09:22] LABS: HEMATOCRIT 40.8 % (36.0-45.00); MEAN CORPUSCULAR HEMOGLOBIN 34.7 pg (27.00-32.0); MEAN CORPUSCULAR HGB CONC 34.3 g/dl (32.0-36.0); PLATELET COUNT 290 K/uL (150-450); RED BLOOD COUNT 4.04 M/uL (4.00-6.00); RED CELL DISTRIBUTION WIDTH 13.8 % (11.5-14.5)
[2025-02-02 10:22] LABS: ALBUMIN 3.5 gm/dL (3.4-5.0); BILIRUBIN TOTAL 1.43 mg/dL (0.3-1.2); CALCIUM 8.8 mg/dL (8.5-10.1); CREATININE SERUM 0.69 mg/dL (0.55-1.02); GFR 80.29; GLOBULINA 3.4 G/DL (2.4-3.5); POTASSIUM 3.52 mEq/L (3.5-5.1); TOTAL PROTEIN 6.9 gm/dL (6.4-8.2)
[2025-02-02 13:43] LABS: MANUAL PLATELET COUNT 352
[2025-02-02 13:47] LABS: PLATELET ESTIMATE NORMAL (NORMAL)
[2025-02-04 05:06] LABS: CA 125 11.9 U/mL (0.0-38.1); CA 15-3 11.3 U/mL (0.0-25.0)
== END | disposition home or self-care (01) ==
LOC: LAB 08:34
PROVIDERS: ATTEND Internal Medicine Hematology & Oncology
DX: C18.2 Malignant neoplasm of ascending colon (principal); D68.61 Antiphospholipid syndrome; I26.99 Other pulmonary embolism without acute cor pulmonale; M15.0 Primary generalized (osteo)arthritis; I80.293 Phlebitis and thrombophlebitis of other deep vessels of lower extremity, bilateral; N39.0 Urinary tract infection, site not specified; Z86.0100 Personal history of colon polyps, unspecified; Z85.09 Personal history of malignant neoplasm of other digestive organs; Z85.038 Personal history of other malignant neoplasm of large intestine; Z86.718 Personal history of other venous thrombosis and embolism; Z86.72 Personal history of thrombophlebitis; I10 Essential (primary) hypertension; D51.3 Other dietary vitamin B12 deficiency anemia; D52.8 Other folate deficiency anemias; E04.1 Nontoxic single thyroid nodule; N28.1 Cyst of kidney, acquired; N28.89 Other specified disorders of kidney and ureter; D27.0 Benign neoplasm of right ovary; R74.02 Elevation of levels of lactic acid dehydrogenase [LDH]; K76.89 Other specified diseases of liver; C50.919 Malignant neoplasm of unspecified site of unspecified female breast; C56.9 Malignant neoplasm of unspecified ovary; R97.8 Other abnormal tumor markers; R97.0 Elevated carcinoembryonic antigen [CEA]

== ENCOUNTER 2025-04-21 10:30 | Outpatient (CLI) | payer OTHER | END 2025-04-21 10:33 | disposition home or self-care (01) | LOC: RAD 10:30 | PROVIDERS: ATTEND Internal Medicine Rheumatology | DX: M19.012 Primary osteoarthritis, left shoulder (principal); M19.011 Primary osteoarthritis, right shoulder ==

== ENCOUNTER 2025-05-03 09:50 | Outpatient (CLI) | payer OTHER | END 2025-05-03 09:52 | disposition home or self-care (01) | LOC: SONOGRAMA 09:50 | PROVIDERS: ATTEND Pathology Anatomic Pathology & Clinical Pathology | DX: D34 Benign neoplasm of thyroid gland (principal); E07.89 Other specified disorders of thyroid; E04.2 Nontoxic multinodular goiter ==

== ENCOUNTER 2025-05-20 08:55 | Outpatient (CLI) | payer OTHER ==
[2025-05-20 10:17] LABS: CREATININE SERUM 0.71 mg/dL (0.55-1.02)
== END 2025-05-20 09:01 | disposition home or self-care (01) ==
LOC: LAB 08:55
PROVIDERS: ATTEND Radiology Diagnostic Radiology
DX: R10.2 Pelvic and perineal pain (principal); R10.84 Generalized abdominal pain

== ENCOUNTER 2025-05-25 09:37 | Outpatient (CLI) | payer OTHER | END 2025-05-25 09:42 | disposition home or self-care (01) | LOC: TOM 09:37 | PROVIDERS: ATTEND Obstetrics & Gynecology Gynecology | DX: R10.9 Unspecified abdominal pain (principal); R19.00 Intra-abdominal and pelvic swelling, mass and lump, unspecified site | CPT/HCPCS: 74178; Q9965 ==

== ENCOUNTER 2025-09-10 12:56 | Outpatient (CLI) | payer OTHER | END 2025-09-10 13:01 | disposition home or self-care (01) | LOC: SONOGRAMA 12:56 | PROVIDERS: ATTEND Physical Medicine & Rehabilitation | DX: M25.511 Pain in right shoulder (principal); M25.512 Pain in left shoulder ==